=== PATIENT | male | born 1950 | race Caucasian/White ===

== ENCOUNTER 2017-07-06 05:29 | Day surgery (SDC) | payer OTHER ==
[~2017-07-06] VITALS: Ht 182.9 cm; Wt 85.0 kg
--- NOTE | ~2017-07-06 | O ---
[facility] [place] [address] OPERATIVE REPORT Name: ZEV OVALLES Room #: 412-P [facility]..#: [id number] Admission: 07/06/17 Attend Phys: Ashish Alexandra MD Discharge: Date of : 46 Report #: [id number] THIS REPORT FOR: //name// CC: Tyrel Alexandra DATE OF SERVICE: 07/06/2017 PREOPERATIVE DIAGNOSIS: Left foot fourth and fifth metatarsal fracture. POSTOPERATIVE DIAGNOSIS: Left foot fourth and fifth metatarsal fracture. PROCEDURE: Left foot fourth and fifth metatarsal fracture open reduction internal fixation. SURGEON: Ashish Alexandra M.D. DENTURE WAXER: JORGE N[place]. ANESTHESIA: General. ESTIMATED BLOOD LOSS: Minimal. DRAINS: None. TOURNIQUET TIME: 75 minutes. DESCRIPTION OF PROCEDURE: The patient brought to the operating room where he was placed under general anesthesia. Once under adequate general anesthesia, his left lower extremity was prepped and draped in sterile manner. The extremity was elevated, exsanguinated, tourniquet placed 300 mmHg. A lateral incision between the fourth and fifth metatarsals was then made. This was dissected down through soft tissue to the fifth metatarsal fracture. This was then identified and subsequently reduced provisionally with a pair of 3.0 cannulated screws; however, fixation was not satisfactory with this; therefore, a dorsal plate was placed from the mini fragment set from [employer]. Excellent fixation and alignment was achieved in this manner. Similarly on the fourth metatarsal, reduction with screws was achieved; however, this was not satisfactory either and subsequent fixation was achieved with a dorsal plate from the mini fragment set with screw fixation, both proximal and distal to the fracture site. Excellent fixation and alignment was achieved. Once complete, the wound was irrigated copiously and closed with 2-0 Vicryl in the subcutaneous tissues and 3-0 nylon for the skin. The wounds were dressed with Xeroform, 4 x 4s, and sterile soft compressive dressing was placed. Tourniquet was let down at 75 minutes. Toes were pink and warm with good capillary refill. There were [facility] [address] [place] [address] OPERATIVE REPORT Name: JOSRZEV Gloria Room #: 412-P [facility].R.#: [id number] Admission: 07/06/17 Attend Phys: Ashish Alexandra MD Discharge: Date of : 46 Report #: [id number] no complications from the procedure. The patient tolerated the procedure well and went to recovery room without incident. <ELECTRONICALLY SIGNED> By: Ashish Alexandra MD 07/07/17 [id number] Ashish Alexandra MD /nt
[~2017-07-06 05:29] MED LIST: APAP650 PO; ASPIR 8181 MG PO; ATORVASTATIN CA40 MG PO; CALCIUM 600 +1 EAC1 PO; CARVEDILOL3.125 MG PO; CENTRUM SILVER1 EAC4 PO; COUMADIN 5 MG TA5 M1 PO; DILANTIN100 MG PO; FISH OIL 1,001000 M2 PO; HYDROCODONE-AP1 EAC6 PO; IRBESARTAN150 MG PO; K-DUR 20 MEQ T20 MEQ PO; LASIX 40 MG TAB40 M2 PO; OSTEO BI-FLEX1 EAC1 PO; REQUIP 1 MG TABL1 M1 PO; SIMVASTATIN40 MG PO; SUPER B COMPLE150 MG PO; SYNTHROID50 MCG PO; ZOLPIDEM TARTRA10 MG PO
[2017-07-06 14:00] LABS: CALCIUM 9.4 mg/dL (8.5-10.1); CREATININE 1.2 mg/dL (0.7-1.3); POTASSIUM 4.4 mmol/L (3.5-5.1)
[2017-07-06 14:06] LABS: INR 1.1; PROTIME 11.2 Seconds (9.3-11.4)
[2017-07-06 14:25] VITALS: BP 100/62
[2017-07-06 17:46] VITALS: BP 115/63
[2017-07-06 18:15] VITALS: BP 119/50
[2017-07-06 18:45] VITALS: BP 107/73
[2017-07-06 20:05] VITALS: BP 150/53
[2017-07-06 23:39] VITALS: BP 102/65
[2017-07-07 04:00] VITALS: BP 99/46
[2017-07-07 04:08] LABS: HEMATOCRIT 31.5 % (42.0-52.0); HEMOGLOBIN 10.8 gm/dL (14.0-18.0)
[2017-07-07 04:20] LABS: POTASSIUM 4.8 mmol/L (3.5-5.1)
[2017-07-07 08:00] VITALS: BP 105/83
[2017-07-07 12:48] VITALS: BP 107/52
[2017-07-07 15:19] VITALS: BP 98/58
[2017-07-07 19:42] VITALS: BP 96/50
[2017-07-08 04:19] VITALS: BP 96/56
[2017-07-08 08:48] VITALS: BP 96/50
[2017-07-08] MEDS ORDERED: ASA5UEC PO (11:19)
[2017-07-08] MEDS ORDERED: OXYCODONE-APAP1 TAB PO (11:19)
== END 2017-07-08 14:13 ==
LOC: OR 05:29 → TBA 05:30 → OR 07:00 → 4N 17:40 → OR 07-08 14:13
PROVIDERS: Orthopaedic Surgery Foot and Ankle Surgery
DX: S92.342A Displaced fracture of fourth metatarsal bone, left foot, initial encounter for closed fracture (principal); S92.352A Displaced fracture of fifth metatarsal bone, left foot, initial encounter for closed fracture; I10 Essential (primary) hypertension; I25.2 Old myocardial infarction; Z95.0 Presence of cardiac pacemaker; E78.5 Hyperlipidemia, unspecified; Z98.890 Other specified postprocedural states; Z88.2 Allergy status to sulfonamides; Z79.82 Long term (current) use of aspirin; Z79.899 Other long term (current) drug therapy; Z79.891 Long term (current) use of opiate analgesic; Z79.01 Long term (current) use of anticoagulants; X58.XXXA Exposure to other specified factors, initial encounter; Y99.8 Other external cause status; Y93.89 Activity, other specified; Y92.89 Other specified places as the place of occurrence of the external cause